=== PATIENT | female | born 1965 | race Caucasian/White ===

== ENCOUNTER 2023-05-01 03:59 | Inpatient (IN) | payer BC ==
[2023-05-01] VITALS (14 sets, daily range): BP systolic 123–1360; BP diastolic 56–95; PULSE 83–96; TEMP 97.2–98.6
[~2023-05-01] VITALS: Ht 162.6 cm; Wt 81.8 kg
[2023-05-01 04:36] LABS: HEMATOCRIT 48.4 % (37.0-47.0); HEMOGLOBIN 16.1 g/dl (12.5-16.0); MEAN CELL VOLUME 87 fl (80.0-100.0); MEAN CORPUSCULAR HEMOGLOBIN 29 pg (27-31); MEAN CORPUSCULAR HGB CONC 33 g/dl (33.0-37.0); MEAN PLATELET VOLUME 10.3 fl (7.4-10.4); PLATELET COUNT 329 K/mm3 (130-400); RED BLOOD COUNT 5.54 M/mm3 (4.10-5.30); REDCELL DISTRIBUTION WIDTH-CV 14.1 % (11.5-14.5)
[2023-05-01 04:56] LABS: ALBUMIN 4.4 gm/dL (3.5-5.0); BILIRUBIN,TOTAL 0.6 mg/dL (0.2-1.2); C-REACTIVE PROTEIN 0.59 mg/dL (0.00-0.50); CALCIUM 10.3 mg/dL (8.4-10.2); CREATININE, serum 0.76 mg/dL (0.57-1.11); POTASSIUM 3.8 mmol/L (3.5-4.5); TOTAL PROTEIN 7.9 gm/dL (6.2-8.1)
[2023-05-01 05:15] LABS: HYPOCHROMIA 1+; LYMPHOCYTE 4 % (20.0-51.0); NEUTROPHILS 91 % (42.0-75.2); PLATELET ESTIMATE NORMAL (NORMAL)
[2023-05-01] MEDS ORDERED: KEPPRA 500MG500 MG (07:38)
[2023-05-01] MEDS ORDERED: VOLTAREN 75 DR75 MG (07:39)
[2023-05-01] MEDS ORDERED: ZESTRIL 20MG TA20 MG (07:39)
--- NOTE | 2023-05-01 08:12 | NUR ---
PT UP TO THE FLOOR AT THIS TIME. A/O X4, VITALS STABLE, NG TO LIS, STEADY GAIT, FAMILY AT BEDSIDE, PAIN 2/10. WILL CONTINUE TO MONITOR.
--- NOTE | 2023-05-02 01:29 | NUR ---
NURSING SHIFT ASSESSMENT COMPLETED. THE PATIENT WAS SITTING IN THE RECLINER AND STATED THAT SHE WAS READY TO GO BACK TO BED. THE PATIENT TRANSFERRED WITH A STEADY GAIT 1:1 SBA TO THE BATHROOM WHERE SHE VOIDED WITHOUT DIFFICULTY, THEN AMBULATED TO THE BED. THE PATIENT WAS ASSISTED WITH POSITIONING TO HER COMFORT. THE LAP SITES 3 ON HER ABDOMEN ARE COVERED WITH BANDAIDS AND C/D/I. THE PATIENT REPORTED ABD PAIN WITH MOVEMENT 12/08. PRN PAIN MEDICATION PROVIDED. PAIN CONTROL, PLAN OF CARE AND EVENING MEDICATIONS REVIEWED. CALL LIGHT AND PERSONAL BELONGINGS WITHIN REACH. BED IN LOW POSITION AND BED ALARM ON.
[2023-05-02 04:04] VITALS: BP 152/69; PULSE 81; TEMP 99
[2023-05-02 07:20] VITALS: BP 151/82; PULSE 75; TEMP 97.5
[2023-05-02] MEDS ORDERED: TYLENOL 500MG500 MG PO (07:20)
[2023-05-02] MEDS ORDERED: ROXICODONE 55 MG/TAB PO (07:20)
[2023-05-02 07:24] LABS: BASO % 0.2 % (0.0-2.0); GRAN # 10.3 K/mm3 (1.4-6.5); GRAN % 83.7 % (42.2-75.2); LYMPH # 0.9 K/mm3 (1.2-3.4); LYMPH % 6.9 % (20.0-51.0); MEAN CELL VOLUME 88 fl (80.0-100.0); MEAN CORPUSCULAR HGB CONC 34 g/dl (33.0-37.0); MEAN PLATELET VOLUME 11.2 fl (7.4-10.4); MONO # 1.1 K/mm3 (0.1-0.6); MONO % 8.7 % (1.7-9.3); RED BLOOD COUNT 4.06 M/mm3 (4.10-5.30); REDCELL DISTRIBUTION WIDTH-CV 14.3 % (11.5-14.5)
[2023-05-02 07:27] LABS: HEMATOCRIT 35.6 % (37.0-47.0); MEAN CORPUSCULAR HEMOGLOBIN 30 pg (27-31); PLATELET COUNT 219 K/mm3 (130-400)
[2023-05-02 07:41] LABS: CALCIUM 8.6 mg/dL (8.4-10.2); CREATININE, serum 0.7 mg/dL (0.57-1.11); POTASSIUM 3.6 mmol/L (3.5-4.5)
[2023-05-02 08:00] VITALS: BP_SYST 151
--- NOTE | 2023-05-02 08:00 | NUR ---
PATIENT IS A&O AND SITTING UP IN BED WITH BREAKFAST TRAY. VSS. C/O MILD ABD DISCOMFORT RATED AT 4/10 BUT REQUESTING PAIN MEDS BEFORE DISCHARGE. ROUNDED THIS AM, SEE ORDERS. NO C/O N/V. AM MEDS GIVEN. ABD IS ROUND, SOFT AND WITH POSITIVE BOWL SOUNDS. PATIENT REPORTS FLATUS. ABD LAP SITES X3 ARE CD&I WITH BANDAIDS. HEAD TO TOE ASSESSMENT WNL. PATIENT HOPING TO DISCHARGE HOME TODAY. NO OTHER NEEDS AT THIS TIME. CALL LIGHT IN REACH.
--- NOTE | 2023-05-02 08:44 | NUR ---
Initial visit; Patient beginning to eat breakfast. Internal Sales Engineer introduced herself and let patient know Internal Sales Engineer is available to her to offer Spiritual Care and that she will most likely be offered Holy Communion from someone from [facility] today. Patient thanked Internal Sales Engineer for stopping.
--- NOTE | 2023-05-02 09:25 | NUR ---
[employer] construction worker met with pt to discuss discharge planning. She lives alone in [place]. Her contact is Reji, . She sees Maria Luz Gutierrez for PCP needs and obtains medications from [facility] with no difficulties. She is independent with ADLS and uses no DME. She does not have a DPOA-HC and declined one at this time. She denies the need for PT/OT services as said she gets around fine. Her only concern is she lives on the second story of an apartment. SW asked if she had supports or people to assist. She reports she does, such as her . Pt intends to return home at discharge. Discharge Plan: Home
--- NOTE | 2023-05-02 10:00 | NUR ---
PATIENT DISCHARGING HOME TODAY AND JUST CALLED HER RIDE. GAVE DISCHARGE INSTRUCTIONS, E-SCRIPTS SENT, AND DISCUSSED F/U APT. ANSWERED QUESTIONS/CONCERNS. IV DC'D THIS AM AND SITE COVERED WITH JANETH. PATIENT GETTING DRESSED AND PACKING PERSONAL BELONGINGS FOR DISCHARGE.
--- NOTE | 2023-05-02 10:36 | NUR ---
PATIENT JANETTEE IS HERE AND SHE DISCHARGED POV VIA AMBULATORY.
== END 2023-05-02 10:36 | disposition home or self-care (01) | DRG 355 ==
LOC: COL.ER 03:59 → SURG 06:29
PROVIDERS: Emergency Medicine; ADMIT Surgery
PROC: 8E0W4CZ Robotic Assisted Procedure of Trunk Region, Percutaneous Endoscopic Approach (ICD-10-PCS; 2023-05-01)
PROC: 0WUF4JZ Supplement Abdominal Wall with Synthetic Substitute, Percutaneous Endoscopic Approach (ICD-10-PCS; principal; 2023-05-01 10:00)
DX: K43.6 Other and unspecified ventral hernia with obstruction, without gangrene (principal); D72.829 Elevated white blood cell count, unspecified; I10 Essential (primary) hypertension; G40.909 Epilepsy, unspecified, not intractable, without status epilepticus; M19.90 Unspecified osteoarthritis, unspecified site; K21.9 Gastro-esophageal reflux disease without esophagitis; Z79.899 Other long term (current) drug therapy
CPT/HCPCS: A4314; A9284; C1781; J0330; J0690; J1100; J2250; J2270; J2405; J2704; J3010; J7030; J7120; Q9967

== ENCOUNTER → 2024-01-18 | Outpatient (CLI) | payer BC ==
[~2024-01-18] MED LIST: KEPPRA 500MG500 MG; ROXICODONE 55 MG/TAB PO; TYLENOL 500MG500 MG PO; VOLTAREN 75 DR75 MG; ZESTRIL 20MG TA20 MG
== END ==
LOC: COL.VAS 08:21
DX: I10 Essential (primary) hypertension (principal); R06.2 Wheezing; R94.31 Abnormal electrocardiogram [ECG] [EKG]